=== PATIENT | female | born 1980 | race Caucasian/White ===

== ENCOUNTER 2020-10-30 12:16 | Outpatient (CLI) | payer OTHER | END 2020-10-30 12:17 | disposition home or self-care (01) | LOC: CSHMAMMO 12:16 | PROVIDERS: ATTEND Family Medicine | DX: Z12.31 Encounter for screening mammogram for malignant neoplasm of breast (principal) | CPT/HCPCS: 77063; 77067 ==

== ENCOUNTER 2020-11-03 09:06 | Outpatient (CLI) | payer OTHER | END 2020-11-03 09:07 | disposition home or self-care (01) | LOC: CSHLAB 09:06 | PROVIDERS: ATTEND Obstetrics & Gynecology | DX: Z01.812 Encounter for preprocedural laboratory examination (principal); Z20.822 Contact with and (suspected) exposure to COVID-19; N94.6 Dysmenorrhea, unspecified; N83.292 Other ovarian cyst, left side | CPT/HCPCS: 84703; 85027; 86850; 86900; 86901; 87635; U0003; U0005 ==

== ENCOUNTER 2020-11-08 08:00 | Day surgery (SDC) | payer OTHER ==
[2020-11-03 11:15] LABS: Hemoglobin 12.6 g/dL (12.0-15.5); Mean Corpuscular HGB CONC 32.5 g/dL (32.0-36.0); Mean Corpuscular Hemoglobin 31.3 pg (27.0-33.0); Mean Corpuscular Volume 96.3 fl (81.6-98.3); Mean Platelet Volume 12.1 fl (7.4-10.4); Platelet Count 273 10x3/uL (150-450); RBC Distribution Width 12.8 % (11.5-14.5); Red Blood Cell (RBC) Count 4.03 10x6/uL (3.90-5.03); White Blood Cell (WBC) Count 4.8 10x3/uL (3.5-10.5)
[2020-11-03 11:32] LABS: BHCG - Serum Negative (NEGATIVE); Pregs Control Background? CLEAR/WHITE (CLR/WHITE); Pregs Control Bar Appear? YES (CONTROL BAR)
[2020-11-03 20:55] LABS: SARS-CoV-2 PCR by NAA Not Detected (NotDetected)
[2020-11-07 11:11] VITALS: BMI 25.1
[~2020-11-08 08:00] MED LIST: Bupivacaine PF 0.5% 30 ML VIAL ONE; EPINEPHrine 1 MG/ML AMP ONE
[2020-11-08] MEDS ORDERED: Gabapentin 300 MG CAP ONE (08:04)
[2020-11-08] MEDS ORDERED: Famotidine/PF 20 mg/2ml Vial ONE (08:05)
[2020-11-08] MEDS ORDERED: CeleCOXIB 100 MG CAP ONE (08:05)
[2020-11-08] MEDS ORDERED: Lidocaine 1% MPF 2 ML VIAL ONE (08:05)
[2020-11-08] MEDS ORDERED: Midazolam HCl 2 mg/2 ml Vial ONE (08:29)
[2020-11-08] MEDS ORDERED: Scopolamine 1.5 mg/72 hour Patch ONE (08:31)
[2020-11-08] MEDS ORDERED: Promethazine HCl 25 MG/ML VIAL ONE (08:35)
[2020-11-08] MEDS ORDERED: Fentanyl 100 MCG/2 ML VIAL ONE ×3 (08:36→10:57)
[2020-11-08] MEDS ORDERED: PROPOFOL 20 ML ONE (08:37)
[2020-11-08] MEDS ORDERED: Rocuronium Bromide 10 MG/ML (10ML VIAL) ONE (08:37)
[2020-11-08] MEDS ORDERED: Lidocaine 2% PF 5 ML VIAL ONE (08:37)
[2020-11-08] MEDS ORDERED: Ondansetron PF 4 MG/2 ML Vial ONE ×2 (08:53→12:19)
[2020-11-08] MEDS ORDERED: Dexamethasone 20 MG/5 ML VIAL ONE (08:53)
[2020-11-08] MEDS ORDERED: Morphine 4 MG/ML VIAL ONE (12:12)
[2020-11-08] MEDS ORDERED: HYDROcodone/Acetaminophen 5/325 mg Tablet ONE (14:13)
== END 2020-11-08 15:10 | disposition home or self-care (01) ==
LOC: CSHSDC 08:00
PROVIDERS: ATTEND Obstetrics & Gynecology
PROC: 0UT94ZZ Resection of Uterus, Percutaneous Endoscopic Approach (ICD-10-PCS; principal; 2020-11-08)
PROC: 0UT14ZZ Resection of Left Ovary, Percutaneous Endoscopic Approach (ICD-10-PCS; principal; 2020-11-08)
PROC: 0UT74ZZ Resection of Bilateral Fallopian Tubes, Percutaneous Endoscopic Approach (ICD-10-PCS; principal; 2020-11-08)
DX: D25.9 Leiomyoma of uterus, unspecified (principal); N72 Inflammatory disease of cervix uteri; N83.12 Corpus luteum cyst of left ovary; N83.02 Follicular cyst of left ovary; N83.8 Other noninflammatory disorders of ovary, fallopian tube and broad ligament; N73.6 Female pelvic peritoneal adhesions (postinfective)
CPT/HCPCS: 36415; 84703; 85027; 86850; 86900; 86901; 87635; 88307; J0171; J0690; J1100; J2001; J2250; J2270; J2405; J2550; J2704; J3010; S0020; S0028; U0003; U0005